=== PATIENT | female | born 1985 | race Caucasian/White ===

== ENCOUNTER 2018-05-04 12:15 | Day surgery (SDC) | payer OTHER ==
[~2018-05-04 12:15] MED LIST: MULTI VITAMIN1 EACH PO
== END 2018-05-04 16:45 | disposition home or self-care (01) ==
LOC: CIR.AMB 12:15
DX: O02.1 Missed abortion (principal); Z3A.01 Less than 8 weeks gestation of pregnancy

== ENCOUNTER 2019-03-23 15:39 | Outpatient (CLI) | payer OTHER | END 2019-03-23 16:59 | disposition home or self-care (01) | LOC: NST 15:39 | DX: Z34.82 Encounter for supervision of other normal pregnancy, second trimester (principal) ==

== ENCOUNTER 2019-07-18 12:26 | Outpatient (CLI) | payer OTHER | END 2019-07-18 12:42 | disposition home or self-care (01) | LOC: NST 12:26 | DX: Z34.83 Encounter for supervision of other normal pregnancy, third trimester (principal) ==

== ENCOUNTER 2019-07-21 00:06 | Inpatient (IN) | payer OTHER ==
[~2019-07-21] VITALS: Ht 160 cm; Wt 85.3 kg
[2019-07-21] MEDS ORDERED: PRENATAL CAPLE1 EAC1 PO (07:44)
[2019-07-21] MEDS ORDERED: IRON325 MG PO (07:44)
== END 2019-07-24 11:00 | disposition home or self-care (01) | DRG 768 ==
LOC: LDR 00:06 → OB/GYN 00:29 → LDR 07:52 → SURG-SUITE 19:57 → OB/GYN 07-24 15:20
PROVIDERS: ADMIT Obstetrics & Gynecology
PROC: 10E0XZZ Delivery of Products of Conception, External Approach (ICD-10-PCS; principal; 2019-07-21)
PROC: 0DQR0ZZ Repair Anal Sphincter, Open Approach (ICD-10-PCS; 2019-07-21)
PROC: 0W8NXZZ Division of Female Perineum, External Approach (ICD-10-PCS; 2019-07-21)
PROC: 3E033VJ Introduction of Other Hormone into Peripheral Vein, Percutaneous Approach (ICD-10-PCS; 2019-07-21)
PROC: 4A1HXCZ Monitoring of Products of Conception, Cardiac Rate, External Approach (ICD-10-PCS; 2019-07-21)
DX: O70.21 Third degree perineal laceration during delivery, IIIa (principal); Z37.0 Single live birth; Z3A.39 39 weeks gestation of pregnancy

== ENCOUNTER 2022-08-11 13:04 | Outpatient (CLI) | payer OTHER ==
[~2022-08-11 13:04] MED LIST changes: +IRON325 MG PO; +PRENATAL CAPLE1 EAC1 PO
== END 2022-08-11 14:44 | disposition home or self-care (01) ==
LOC: NST 13:04
PROVIDERS: ATTEND Obstetrics & Gynecology Gynecology
DX: Z34.83 Encounter for supervision of other normal pregnancy, third trimester (principal)

== ENCOUNTER 2022-08-11 14:00 | Inpatient (IN) | payer OTHER ==
[~2022-08-11] VITALS: Ht 160 cm; Wt 85.3 kg
== END 2022-08-21 17:21 | disposition home or self-care (01) | DRG 807 ==
LOC: LDR 08-19 04:46 → OB/GYN 08-19 18:57
PROVIDERS: ADMIT Obstetrics & Gynecology; ATTEND Obstetrics & Gynecology
PROC: 10E0XZZ Delivery of Products of Conception, External Approach (ICD-10-PCS; principal; 2022-08-19)
PROC: 0KQM0ZZ Repair Perineum Muscle, Open Approach (ICD-10-PCS; 2022-08-19)
PROC: 4A1HXCZ Monitoring of Products of Conception, Cardiac Rate, External Approach (ICD-10-PCS; 2022-08-19)
DX: O70.1 Second degree perineal laceration during delivery (principal); Z37.0 Single live birth; Z3A.39 39 weeks gestation of pregnancy; Z20.822 Contact with and (suspected) exposure to COVID-19

== ENCOUNTER 2022-08-13 12:23 | Outpatient (CLI) | payer OTHER | END 2022-08-13 12:37 | disposition home or self-care (01) | LOC: NST 12:23 | PROVIDERS: ATTEND Obstetrics & Gynecology | DX: Z34.83 Encounter for supervision of other normal pregnancy, third trimester (principal) ==

== ENCOUNTER 2024-05-31 05:55 | Day surgery (SDC) | payer OTHER ==
[2024-05-29 11:47] LABS: HEMATOCRIT 38.5 % (36.0-45.00); HEMOGLOBIN 13.2 g/dL (12.0-15.00); MEAN CELL VOLUME 92.9 fL (80.00-100.00); MEAN CORPUSCULAR HEMOGLOBIN 31.9 pg (27.00-32.0); MEAN CORPUSCULAR HGB CONC 34.4 g/dl (32.0-36.0); PLATELET COUNT 308 K/uL (150-450); RED BLOOD COUNT 4.14 M/uL (4.00-6.00); RED CELL DISTRIBUTION WIDTH 13.1 % (11.5-14.5)
[2024-05-29 12:23] LABS: INR 1.09; PARTIAL THROMBOPLASTIN TIME 27.4 SECONDS (22.0-34.0); PROTHROMBIN TIME 11.8 SECONDS (9.0-11.5)
[2024-05-29 12:51] LABS: PH,URINE 6.5 (5.0-8.0); URINE APPEARANCE Clear; URINE BILIRRUBIN Negative (NEGATIVE); URINE BLOOD Negative; URINE COLOR Yellow; URINE GLUCOSE Negative (NEGATIVE); URINE KETONE Trace (NEGATIVE); URINE LEUKOCYTE Negative; URINE NITRATE Negative; URINE PROTEIN Negative (NEGATIVE); URINE UROBILINOGEN 0.2 E.U./dl
[2024-05-29 12:52] LABS: URINE RBC 2.5 uL (0.0-20.8)
[2024-05-29 12:55] LABS: URINE BACTERIA 0 uL (0.0-1933); URINE EPITHELIAL CELLS 1.2 uL (0.0-38.8); URINE WBC 0.4 uL (0.0-23.2)
[2024-05-29 13:37] LABS: ALBUMIN 3.9 gm/dL (3.4-5.0); BILIRUBIN TOTAL 0.29 mg/dL (0.3-1.2); CALCIUM 9.2 mg/dL (8.5-10.1); CREATININE SERUM 0.66 mg/dL (0.55-1.02); GFR 99.7; GLOBULINA 2.9 G/DL (2.4-3.5); POTASSIUM 4.88 mEq/L (3.5-5.1); TOTAL PROTEIN 6.8 gm/dL (6.4-8.2)
[2024-05-31] MEDS ORDERED: POVIDONE-IODINE 118 ML BOTT TOP ONE (14:15)
[2024-05-31] MEDS ORDERED: RINGERS SOLUTION,LACTATED 1,000 ML IV SCH (16:00)
== END 2024-05-31 17:30 | disposition home or self-care (01) ==
LOC: CIR.AMB 05:55
PROVIDERS: ATTEND Obstetrics & Gynecology Gynecology
DX: D06.9 Carcinoma in situ of cervix, unspecified (principal); N72 Inflammatory disease of cervix uteri